=== PATIENT | female | born 2000 | race Caucasian/White ===

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

== ENCOUNTER 2021-12-13 21:56 | Emergency (ER) | payer OTHER ==
[~2021-12-13] VITALS: Ht 172.7 cm; Wt 72.6 kg
[~2021-12-13 21:56] MED LIST changes: +CEPH500 PO; +IBUP800 PO; +Norco 5-325 Ta1 EACH PO; +PRENATAL TABLE1 EAC2 PO
[2021-12-13] MEDS ORDERED: ORAL BIRTH CONTROL (22:15)
== END 2021-12-14 00:06 | disposition home or self-care (01) ==
LOC: ER 21:56
DX: S05.01XA Injury of conjunctiva and corneal abrasion without foreign body, right eye, initial encounter (principal); W22.8XXA Striking against or struck by other objects, initial encounter; Z88.0 Allergy status to penicillin
CPT/HCPCS: A9270